=== PATIENT | female | born 1985 | race Two or more races ===

== ENCOUNTER 2018-11-10 11:15 | Emergency (ER) | payer OTHER ==
[2018-11-10 11:24] VITALS: RESP 18; TEMP 97.8
--- NOTE | 2018-11-10 12:10 | XR ---
EXAMINATION TYPE: XR chest 2V DATE OF EXAM: 11/10/2018 COMPARISON: None HISTORY: 33-year-old female palpitations, dysrhythmia TECHNIQUE: PA and lateral views FINDINGS: Heart normal size. Aorta and pulmonary vascularity within normal limits. Some strandy atelectasis of the right base. Mild peribronchial cuffing is noted. No consolidation or pleural effusion. IMPRESSION: Mild peribronchial cuffing may reflect bronchitis or asthma.
[2018-11-10 12:19] LABS: Basophils % (A) 0 %; Eosinophils # (A) 0.2 k/uL (0-0.7); Eosinophils % (A) 2 %; HCT 42.5 % (34.0-46.0); HGB 14.2 gm/dL (11.4-16.0); Lymphocytes # (A) 1.9 k/uL (1.0-4.8); Lymphocytes % (A) 23 %; MCH 28.8 pg (25.0-35.0); MCHC 33.4 g/dL (31.0-37.0); MCV 86.1 fL (80.0-100.0); Mean Platelet Volume 7.8; Monocytes # (A) 0.4 k/uL (0-1.0); Monocytes % (A) 4 %; Neutrophils # (A) 5.7 k/uL (1.3-7.7); Neutrophils % (A) 68 %; Platelet Count 253 k/uL (150-450); RBC 4.94 m/uL (3.80-5.40); RDW 12.6 % (11.5-15.5); WBC 8.3 k/uL (3.8-10.6)
[2018-11-10 12:28] LABS: ALT 30 U/L (9-52); AST 26 U/L (14-36); Albumin 4.5 g/dL (3.5-5.0); Alkaline Phosphatase 64 U/L (38-126); Anion Gap 10 mmol/L; Blood Urea Nitrogen 13 mg/dL (7-17); Calcium 9.9 mg/dL (8.4-10.2); Carbon Dioxide 23 mmol/L (22-30); Chloride 108 mmol/L (98-107); Glucose 80 mg/dL (74-99); Magnesium 2.1 mg/dL (1.6-2.3); Sodium 141 mmol/L (137-145); Total Bilirubin 0.8 mg/dL (0.2-1.3); Total Protein 7.7 g/dL (6.3-8.2)
[2018-11-10 12:29] LABS: INR 0.9 (<1.2); Partial Thromboplastin Time 27.6 sec (22.0-30.0); Prothrombin Time 10.2 sec (9.0-12.0)
[2018-11-10 12:40] LABS: Creatine Kinase 55 U/L (30-135)
[2018-11-10 12:53] LABS: Creatine Kinase MB <0.2 ng/mL (0.0-2.4); Troponin I <0.012 ng/mL (0.000-0.034)
--- NOTE | 2018-11-10 13:30 | ED ---
Arrhythmia/Palpitations HPI - General Chief Complaint: Arrhythmia/Palpitations Stated Complaint: palpatations x 3 weeks Time Seen by Provider: 11/10/18 11:26 Source: patient Mode of arrival: ambulatory Limitations: no limitations - History of Present Illness Initial Comments: 33-year-old female patient presents to the emergency department today with complaints of palpitations. Patient states that for the last 3 weeks she has been having episodes were she feels that her heart is skipping beats. Patient states that today she felt like she had a long episode of the palpitations, states it made her feel dizzy and like she was going to pass out. Patient states that she was seen and evaluated for this at [facility] a couple of weeks ago and was diagnosed as having occasional PVCs. Patient does have an appointment on the have a Holter monitor placed and then subsequently following with the streetcar dispatcher. Patient states that she did feel like she could wait that long so she presented here for further evaluation. She states with the episode she did become nauseated and did have some mild dizziness. She denies any fevers or chills with this. Denies any chest pain or shortness of breath. Denies any use of caffeine or other stimulant medications. Patient denies any recent rash, abdominal pain, vomiting, diarrhea , constipation, back pain, numbness, tingling, hematuria, dysuria, urinary urgency, urinary frequency, headache, visual changes, or any other complaints. - Related Data Allergies Allergy/AdvReac Type Severity Reaction Status Date / Time cefaclor [From [facility]] Allergy Rash/Hives Verified 11/10/18 11:24 Penicillins Allergy Rash/Hives Verified 11/10/18 11:24 Review of Systems ROS Statement: Those systems with pertinent positive or pertinent negative responses have been documented in the HPI. ROS Other: All systems not noted in ROS Statement are negative. Past Medical History Additional Past Medical History / Comment(s): Palpitations History of Any Multi-Drug Resistant Organisms: None Reported Past Surgical History: Appendectomy, Cholecystectomy, Tonsillectomy Past Psychological History: Anxiety Smoking Status: Current every day smoker Past Alcohol Use History: None Reported General Exam Limitations: no limitations General appearance: alert, in no apparent distress, other (This is a well- developed, well-nourished adult female patient in no acute distress. Vital signs upon temperature 97.8F, pulse 78, respirations 18, blood pressure 124/82 , pulse ox 100% on room air.) Eye exam: Present: normal appearance, PERRL, EOMI. Absent: scleral icterus, conjunctival injection, periorbital swelling ENT exam: Present: normal exam, normal oropharynx, mucous membranes moist Respiratory exam: Present: normal lung sounds bilaterally. Absent: respiratory distress, wheezes, rales, rhonchi, stridor Cardiovascular Exam: Present: regular rate, normal rhythm, normal heart sounds. Absent: systolic murmur, diastolic murmur, rubs, gallop, clicks GI/Abdominal exam: Present: soft, normal bowel sounds. Absent: distended, tenderness, guarding, rebound, rigid Neurological exam: Present: alert, oriented X3, CN II-XII intact Psychiatric exam: Present: normal affect, normal mood Skin exam: Present: warm, dry, intact, normal color. Absent: rash Course Vital Signs 11/10/18 11/10/18 11:21 13:45 Temperature 97.8 F Pulse Rate 78 68 Respiratory 18 18 Rate Blood Pressure 124/82 111/82 O2 Sat by Pulse 100 98 Oximetry EKG Findings - EKG Comments: EKG Findings:: EKG obtained at 1148 shows normal sinus rhythm with a ventricular rate of 71, CT interval 1:30, QRS duration 78, QT 378, QTC 410. No evidence of ST elevation or depression. No ectopy. No evidence of PVCs. Medical Decision Making - Medical Decision Making 33-year-old female patient presented to the emergency department today for evaluation of palpitations. Physical examination is relatively unremarkable. Heart sounds were normal and regular. EKG showed normal sinus rhythm. Patient did have evidence of occasional PVCs on the senior cost analyst, no runs were identified. Labs reviewed and are unremarkable. Electric like all within normal range. Troponin negative. Thyroid within normal limits. Did discuss findings and results with the patient. She does have an appointment for Holter monitor placement on the , she is urged to keep this appointment. She is instructed to follow-up with her primary care physician and the streetcar dispatcher for recheck as soon as possible. Return parameters were discussed in detail. She verbalizes understanding and agrees with this plan - Lab Data Result diagrams: 11/10/18 11:49 11/10/18 11:49 Lab Results 11/10/18 11/10/18 11/10/18 Range/Units 11:49 11:49 11:49 WBC 8.3 (3.8-10.6) k/uL RBC 4.94 (3.80-5.40) m/uL Hgb 14.2 (11.4-16.0) gm/dL Hct 42.5 (34.0-46.0) % MCV 86.1 (80.0-100.0) fL MCH 28.8 (25.0-35.0) pg MCHC 33.4 (31.0-37.0) g/dL RDW 12.6 (11.5-15.5) % Plt Count 253 (150-450) k/uL Neutrophils % 68 % Lymphocytes % 23 % Monocytes % 4 % Eosinophils % 2 % Basophils % 0 % Neutrophils # 5.7 (1.3-7.7) k/uL Lymphocytes # 1.9 (1.0-4.8) k/uL Monocytes # 0.4 (0-1.0) k/uL Eosinophils # 0.2 (0-0.7) k/uL Basophils # 0.0 (0-0.2) k/uL PT (9.0-12.0) sec INR (<1.2) APTT (22.0-30.0) sec Sodium 141 (137-145) mmol/L Potassium 4.0 (3.5-5.1) mmol/L Chloride 108 H (98-107) mmol/L Carbon Dioxide 23 (22-30) mmol/L Anion Gap 10 mmol/L BUN 13 (7-17) mg/dL Creatinine 0.61 (0.52-1.04) mg/dL Est GFR (CKD-EPI)AfAm >90 (>60 ml/min/1.73 sqM) Est GFR (CKD-EPI)NonAf >90 (>60 ml/min/1.73 sqM) Glucose 80 (74-99) mg/dL Calcium 9.9 (8.4-10.2) mg/dL Magnesium 2.1 (1.6-2.3) mg/dL Total Bilirubin 0.8 (0.2-1.3) mg/dL AST 26 (14-36) U/L ALT 30 (9-52) U/L Alkaline Phosphatase 64 (38-126) U/L Total Creatine Kinase 55 (30-135) U/L CK-MB (CK-2) <0.2 (0.0-2.4) ng/mL CK-MB (CK-2) Rel Index Troponin I <0.012 (0.000-0.034) ng/mL Total Protein 7.7 (6.3-8.2) g/dL Albumin 4.5 (3.5-5.0) g/dL TSH 0.920 (0.465-4.680) mIU/L 11/10/18 Range/Units 11:49 WBC (3.8-10.6) k/uL RBC (3.80-5.40) m/uL Hgb (11.4-16.0) gm/dL Hct (34.0-46.0) % MCV (80.0-100.0) fL MCH (25.0-35.0) pg MCHC (31.0-37.0) g/dL RDW (11.5-15.5) % Plt Count (150-450) k/uL Neutrophils % % Lymphocytes % % Monocytes % % Eosinophils % % Basophils % % Neutrophils # (1.3-7.7) k/uL Lymphocytes # (1.0-4.8) k/uL Monocytes # (0-1.0) k/uL Eosinophils # (0-0.7) k/uL Basophils # (0-0.2) k/uL PT 10.2 (9.0-12.0) sec INR 0.9 (<1.2) APTT 27.6 (22.0-30.0) sec Sodium (137-145) mmol/L Potassium (3.5-5.1) mmol/L Chloride (98-107) mmol/L Carbon Dioxide (22-30) mmol/L Anion Gap mmol/L BUN (7-17) mg/dL Creatinine (0.52-1.04) mg/dL Est GFR (CKD-EPI)AfAm (>60 ml/min/1.73 sqM) Est GFR (CKD-EPI)NonAf (>60 ml/min/1.73 sqM) Glucose (74-99) mg/dL Calcium (8.4-10.2) mg/dL Magnesium (1.6-2.3) mg/dL Total Bilirubin (0.2-1.3) mg/dL AST (14-36) U/L ALT (9-52) U/L Alkaline Phosphatase (38-126) U/L Total Creatine Kinase (30-135) U/L CK-MB (CK-2) (0.0-2.4) ng/mL CK-MB (CK-2) Rel Index Troponin I (0.000-0.034) ng/mL Total Protein (6.3-8.2) g/dL Albumin (3.5-5.0) g/dL TSH (0.465-4.680) mIU/L - Radiology Data Radiology results: report reviewed, image reviewed Two-view x-ray of the chest is obtained. Report was reviewed in its entirety. Heart is normal size. Aorta and pulmonary vascularity within normal size. Some strandy atelectasis of the right base. Mild parent bronchial cuffing is noted. No consolidation or pleural effusion. Impression by Dr. Griffin shows mild peribronchial cuffing may reflect bronchitis or asthma. Disposition Clinical Impression: Palpitations Disposition: HOME SELF-CARE Condition: Good Instructions: Heart Palpitations (ED) Additional Instructions: Follow up with cardiology as you have planned. Have holter monitor placed on the as you have planned. Return immediately for any new, worsening, or concerning symptoms. Is patient prescribed a controlled substance at d/c from ED?: No Referrals: Zane Cardozo MD [Primary Care Provider] - 1-2 days Time of Disposition: 13:30
[2018-11-10 13:46] VITALS: BP 111/82; PULSE 68
== END 2018-11-10 13:44 | disposition home or self-care (01) ==
LOC: EC 11:15
DX: R00.2 Palpitations (principal); J98.09 Other diseases of bronchus, not elsewhere classified; R11.0 Nausea; R42 Dizziness and giddiness; F17.200 Nicotine dependence, unspecified, uncomplicated; Z88.0 Allergy status to penicillin; Z88.1 Allergy status to other antibiotic agents
CPT/HCPCS: 36415; 71046; 80053; 82550; 82553; 83735; 84443; 84484; 85025; 85610; 85730; 93005; 99285

== ENCOUNTER 2023-01-29 18:16 | Emergency (ER) | payer BC ==
[2023-01-29 18:34] VITALS: TEMP 98.1
[2023-01-29 18:53] VITALS: RESP 16
[2023-01-29] MEDS ORDERED: PANTOPRAZOLE 40 MG/10 ML VIAL IVP STA (19:06)
[2023-01-29] MEDS ORDERED: SODIUM CHLORIDE 0.9% 1,000 ML IV STA (19:06)
--- NOTE | 2023-01-29 19:24 | ED ---
General Adult HPI - General Chief complaint: Abdominal Pain Stated complaint: Abd & Chest Pain Time Seen by Provider: 01/29/23 18:40 Source: patient, RN notes reviewed Mode of arrival: ambulatory Limitations: no limitations - History of Present Illness Initial comments: Patient is a 37-year-old female presenting to the emergency room with complaints of abdominal pain and intermittent nausea. She reports that abdominal pain is upper with burning-like sensation in the esophageal region at times. She reports that the symptoms have been ongoing for approximately a month and a half began shortly after having influenza. She has seen her primary care provider regarding the symptoms and had her omeprazole 20 mg [id number] dosing inc reased to twice a day from once a day. She was also placed on Bentyl 3 times a day. She reports that these medications have not made any significant changes to her symptoms. She was referred to a GI provider but unfortunately has not been able to schedule an appointment with them. She is also having chest pain with her symptoms and was evaluated by cardiology and cleared from a cardiac standpoint at [facility]. She reports no changes in her cardiovascular symptoms since evaluation. She reports decrease in appetite with decreased intake with her symptoms. She reports decreased amount of bowel movements over the last several days and notes that her last bowel movement was diarrhea earlier today. She denies any blood or mucus in her diarrhea. She reports feeling nauseated but no recent emesis. She states that her last episode of vomiting was approximately 2 weeks ago. She reports some occasional facial flushing but denies any known fevers or chills. She denies any typical chest pain, shortness of breath, headache or dizziness. She has a past medical history significant for palpitations and gastritis. - Related Data Home Medications Medication Instructions Recorded Confirmed ALPRAZolam [Xanax] 0.25 mg PO BID PRN 01/29/23 01/29/23 Dicyclomine HCl 20 mg PO TID 01/29/23 01/29/23 Omeprazole Magnesium [PriLOSEC OTC] 20 mg PO BID 01/29/23 01/29/23 Previous Rx's Medication Instructions Recorded Famotidine [Pepcid] 40 mg PO HS 30 Days #30 tablet 01/29/23 Ondansetron Odt [Zofran Odt] 4 mg PO Q8HR PRN 7 Days #21 tab 01/29/23 Pantoprazole [Protonix] 40 mg PO DAILY 30 Days #30 tab 01/29/23 Allergies Allergy/AdvReac Type Severity Reaction Status Date / Time cefaclor [From [facility]] Allergy Rash/Hives Verified 01/29/23 20:46 Penicillins Allergy Rash/Hives Verified 01/29/23 20:46 Review of Systems ROS Statement: Those systems with pertinent positive or pertinent negative responses have been documented in the HPI. ROS Other: All systems not noted in ROS Statement are negative. Past Medical History Additional Past Medical History / Comment(s): Palpitations, gastritis History of Any Multi-Drug Resistant Organisms: None Reported Past Surgical History: Appendectomy, Cholecystectomy, Tonsillectomy Past Psychological History: Anxiety Smoking Status: Current every day smoker Past Alcohol Use History: None Reported Past Drug Use History: None Reported General Exam - General Exam Comments Initial Comments: GENERAL: No acute distress, well developed, well nourished. HEENT: Normocephalic, atraumatic. Pupils equal, round, reactive to light. Moist mucous membranes. LUNGS: No respiratory distress. Clear to auscultation, no adventitious sounds, no use of accessory muscles. HEART: Regular rate and rhythm without murmur, rub, or gallop. ABDOMEN: Normal bowel sounds. Soft, non-tender, non-distended. BACK: Normal inspection. EXTREMITIES: No edema. No tenderness. Moves all extremities. NEUROLOGIC: Alert & oriented x 3. CN II-XII grossly intact. PSYCHIATRIC: Normal affect and behavior. DERMATOLOGIC: Skin intact, without rashes or lesions noted. Limitations: no limitations Course Vital Signs 01/29/23 01/29/23 01/29/23 18:28 18:52 21:11 Temperature 98.1 F 98.1 F Pulse Rate 85 74 84 Respiratory 18 16 Rate Blood Pressure 147/102 130/100 127/81 O2 Sat by Pulse 100 99 Oximetry 01/29/23 23:18 Temperature Pulse Rate 82 Respiratory 16 Rate Blood Pressure 128/84 O2 Sat by Pulse 99 Oximetry Medical Decision Making - Medical Decision Making Was pt. sent in by a medical professional or institution (, PA, ELECTROCARDIOGRAPH TECHNICIAN, urgent care, hospital, or halfway...) When possible be specific @ -No Did you speak to anyone other than the patient for history (EMS, parent, family, police, friend...)? What history was obtained from this source @ -Spouse Did you review nursing and triage notes (agree or disagree)? Why? @ -I reviewed and agree with nursing and triage notes Were old charts reviewed (outside hosp., previous admission, EMS record, old EKG, old radiological studies, urgent care reports/EKG's, halfway records)? Report findings @ -No old charts were reviewed Differential Diagnosis (chest pain, altered mental status, abdominal pain women, abdominal pain men, vaginal bleeding, weakness, fever, dyspnea, syncope, headache, dizziness, GI bleed, back pain, seizure, CVA, palpatations, mental health, musculoskeletal)? @ -Differential Abdominal Pain Women: Appendicitis, Cholecystitis, diverticulosis, ischemic bowel, pancreatitis, hepatitis, UTI, gastroenteritis, AAA, incarcerated hernia, bowel obstruction, constipation, inflammatory bowel, hepatitis, peptic ulcer disease, splenic infarction, perforated viscus, vulvitis, ovarian torsion, PID, kidney stone, placenta abruption, this is not meant to be an all-inclusive list EKG interpreted by me (3pts min.). @ -None done X-rays interpreted by me (1pt min.). @ -None done CT interpreted by me (1pt min.). @ -Computed tomography scan abdomen and pelvis with contrast: No obstruction, free fluid or air in abdomen. No acute intra-abdominal process. Nonobstructing left renal calculi. U/S interpreted by me (1pt. min.). @ -None done What testing was considered but not performed or refused? (CT, X-rays, U/S, labs)? Why? @ -None What meds were considered but not given or refused? Why? @ -None Did you discuss the management of the patient with other professionals (professionals i.e. , PA, ELECTROCARDIOGRAPH TECHNICIAN, lab, RT, psych nurse, psychotherapist social worker, human resources receptionist, teacher, community cultural development officer, correctional casework specialist)? Give summary @ -No Was smoking cessation discussed for >3mins.? @ -No Was critical care preformed (if so, how long)? @ -No Were there social determinants of health that impacted care today? How? (Homelessness, low income, unemployed, alcoholism, drug addiction, briggs sportation, low edu. Level, literacy, decrease access to med. care, senior living, rehab)? @ -No Was there de-escalation of care discussed even if they declined (Discuss DNR or withdrawal of care, Hospice)? DNR status @ -No What co-morbidities impacted this encounter? (DM, HTN, Smoking, COPD, CAD, Cancer, CVA, ARF, Chemo, Hep., AIDS, mental health diagnosis, sleep apnea, morbid obesity)? @ -None Was patient admitted / discharged? Hospital course, mention meds given and route, prescriptions, significant lab abnormalities, going to OR and other pertinent info. @ -37-year-old female presenting to the emergency room with complaints of abdominal pain and intermittent nausea. Symptoms ongoing for some time. Patient recently had PPI adjusted by primary care provider without any relief in symptoms. Referred to GI for EGD has not seen GI at. Will obtain CBC, CMP, amylase, lipase and send out for H. pylori breath test study in the setting of symptoms ongoing for some time without improvement. Will give IV Protonix and IV fluids and monitor response. Continued nausea without vomiting and abdominal pain intermittently despite medications will give Zofran IV and obtain computed tomography scan of the abdomen. CBC without abnormalities CMP demonstrates slightly elevated liver enzymes AST 38, ALP 51, normal bilirubin, normal alkaline phosphatase, normal amylase, normal lipase. Nausea improved with Zofran. Abdominal pain intermittently but stable. Computed tomography scan negative for acute intra-abdominal. No indication for further diagnostic imaging or laboratory studies. Findings discussed at length with patient and spouse. Advised will change PPI to Protonix orally once a day in the morning H2 histamine of Pepcid 40 mg at bedtime and Zofran for nausea as needed advised continued follow-up with primary care provider and GI as referred. Questions and concerns answered. Return parameters to the emergency room discussed. Will discharge home in stable condition on Protonix, Pepcid and Zofran to utilize for GERD and abdominal pain advising follow up with GI and primary care provider. Undiagnosed new problem with uncertain prognosis? @ -No Drug Therapy requiring intensive monitoring for toxicity (Heparin, Nitro, Insulin, Cardizem)? @ -No Were any procedures done? @ -No Diagnosis/symptom? @ -GERD Acute, or Chronic, or Acute on Chronic? @ -Acute on chronic Uncomplicated (without systemic symptoms) or Complicated (systemic symptoms)? @ -Uncomplicated Side effects of treatment? @ -No Exacerbation, Progression, or Severe Exacerbation? @ -No Poses a threat to life or bodily function? How? (Chest pain, [place], [place], pneumonia, PE, COPD, DKA, ARF, appy, cholecystitis, CVA, Diverticulitis, Homicidal, Suicidal, threat to staff... and all critical care pts) @ -No Diagnosis/symptom? @ -Abdominal pain Acute, or Chronic, or Acute on Chronic? @ -Acute Uncomplicated (without systemic symptoms) or Complicated (systemic symptoms)? @ -Uncomplicated Side effects of treatment? @ -none Exacerbation, Progression, or Severe Exacerbation] @ -no Poses a threat to life or bodily function? @ -no Case discussed with Dr. Lu - Lab Data Result diagrams: 01/29/23 19:10 01/29/23 19:10 Lab Results 01/29/23 01/29/23 01/29/23 Range/Units 19:10 19:10 23:00 WBC 7.4 (3.8-10.6) k/uL RBC 4.91 (3.80-5.40) m/uL Hgb 14.7 (11.4-16.0) gm/dL Hct 42.2 (34.0-46.0) % MCV 86.0 (80.0-100.0) fL MCH 29.9 (25.0-35.0) pg MCHC 34.7 (31.0-37.0) g/dL RDW 12.3 (11.5-15.5) % Plt Count 283 (150-450) k/uL MPV 9.2 Neutrophils % 61 % Lymphocytes % 28 % Monocytes % 6 % Eosinophils % 4 % Basophils % 1 % Neutrophils # 4.5 (1.3-7.7) k/uL Lymphocytes # 2.1 (1.0-4.8) k/uL Monocytes # 0.4 (0-1.0) k/uL Eosinophils # 0.3 (0-0.7) k/uL Basophils # 0.1 (0-0.2) k/uL Sodium 140 (137-145) mmol/L Potassium 4.2 (3.5-5.1) mmol/L Chloride 105 (98-107) mmol/L Carbon Dioxide 24 (22-30) mmol/L Anion Gap 11 mmol/L BUN 7 (7-17) mg/dL Creatinine 0.50 L (0.52-1.04) mg/dL Est GFR (CKD-EPI)AfAm >90 (>60 ml/min/1.73 sqM) Est GFR (CKD-EPI)NonAf >90 (>60 ml/min/1.73 sqM) Glucose 83 (74-99) mg/dL Calcium 9.9 (8.4-10.2) mg/dL Total Bilirubin 0.7 (0.2-1.3) mg/dL AST 38 H (14-36) U/L ALT 51 H (4-34) U/L Alkaline Phosphatase 74 (38-126) U/L Total Protein 7.9 (6.3-8.2) g/dL Albumin 4.8 (3.5-5.0) g/dL Amylase 43 (30-110) U/L Lipase 70 (23-300) U/L Urea Breath Test 0 Min Negative (Negative) - Radiology Data Radiology results: report reviewed, image reviewed Disposition Clinical Impression: GERD (gastroesophageal reflux disease), Abdominal pain Disposition: HOME SELF-CARE Condition: Stable Instructions (If sedation given, give patient instructions): GERD (Gastroesophageal Reflux Disease) (ED), Abdominal Pain (ED) Additional Instructions: stop your omeprazole 20 mg and began Protonix 40 mg once a day in the morning along with Pepcid 40 mg once a day at bedtime. Utilize Zofran as needed for nausea. May continue Bentyl as needed for abdominal cramping. Please follow-up with your primary care provider and shuttler if established.Please return to the Emergency Department if symptoms worsen or any other concerns. Prescriptions: Famotidine [Pepcid] 40 mg PO HS 30 Days #30 tablet Pantoprazole [Protonix] 40 mg PO DAILY 30 Days #30 tab Ondansetron Odt [Zofran Odt] 4 mg PO Q8HR PRN 7 Days #21 tab PRN Reason: Nausea Is patient prescribed a controlled substance at d/c from ED?: No Referrals: Zane Cardozo MD [Primary Care Provider] - 1-2 days Time of Disposition: 23:07
[2023-01-29 20:16] LABS: Potassium 4.2 mmol/L (3.5-5.1)
[2023-01-29 20:17] LABS: ALT 51 U/L (4-34); AST 38 U/L (14-36); African American GFR (CKD) >90 (>60 ml/min/1.73 sqM); Albumin 4.8 g/dL (3.5-5.0); Alkaline Phosphatase 74 U/L (38-126); Amylase 43 U/L (30-110); Anion Gap 11 mmol/L; Blood Urea Nitrogen 7 mg/dL (7-17); Calcium 9.9 mg/dL (8.4-10.2); Carbon Dioxide 24 mmol/L (22-30); Chloride 105 mmol/L (98-107); Glucose 83 mg/dL (74-99); Lipase 70 U/L (23-300); Non-African American GFR(CKD) >90 (>60 ml/min/1.73 sqM); Sodium 140 mmol/L (137-145); Total Bilirubin 0.7 mg/dL (0.2-1.3); Total Protein 7.9 g/dL (6.3-8.2)
[2023-01-29 20:25] LABS: Basophils # (A) 0.1 k/uL (0-0.2); Basophils % (A) 1 %; Eosinophils # (A) 0.3 k/uL (0-0.7); Eosinophils % (A) 4 %; HCT 42.2 % (34.0-46.0); HGB 14.7 gm/dL (11.4-16.0); Lymphocytes # (A) 2.1 k/uL (1.0-4.8); Lymphocytes % (A) 28 %; MCH 29.9 pg (25.0-35.0); MCHC 34.7 g/dL (31.0-37.0); Mean Platelet Volume 9.2; Monocytes # (A) 0.4 k/uL (0-1.0); Monocytes % (A) 6 %; Neutrophils # (A) 4.5 k/uL (1.3-7.7); Neutrophils % (A) 61 %; Platelet Count 283 k/uL (150-450); RBC 4.91 m/uL (3.80-5.40); RDW 12.3 % (11.5-15.5); WBC 7.4 k/uL (3.8-10.6)
[2023-01-29] MEDS ORDERED: ONDANSETRON 4 MG/2 ML VIAL IVP STA (20:48)
--- NOTE | 2023-01-29 22:31 | CT ---
EXAMINATION TYPE: CT abdomen pelvis w con CT DLP: 1055 mGycm, Automated exposure control for dose reduction was used. DATE OF EXAM: 01/29/2023 9:31 PM COMPARISON: Chest x-ray 01/29/2023 CLINICAL INDICATION:Female, 37 years old with history of abdominal pain; epigasric pain TECHNIQUE: Axial CT of the abdomen and pelvis. Sagittal and coronal reformats were created on a [employer] workstation. Contrast used:100 mL of Isovue 300 with IV Contrast, Oral contrast used: without Oral Contrast FINDINGS: LOWER CHEST: Unremarkable ABDOMEN LIVER: Diffusely hypoattenuating parenchyma. GALLBLADDER AND BILE DUCTS: The gallbladder is surgically absent. PANCREAS: Unremarkable. SPLEEN: Unremarkable. ADRENAL GLANDS: Unremarkable. KIDNEYS AND URETERS: Punctate nonobstructing left lower pole renal calculus. No hydronephrosis. PELVIS BLADDER: Unremarkable REPRODUCTIVE: Intrauterine device seen within the endometrium. ABDOMEN & PELVIS STOMACH AND BOWEL: Stomach and duodenum are unremarkable. Scattered diverticula are noted throughout the colon. No evidence of bowel obstruction. Appendix is surgically absent. PERITONEUM: No evidence of pneumoperitoneum or free fluid. VASCULATURE: Unremarkable MUSCULOSKELETAL: No acute osseous abnormalities LYMPH NODES: No gross evidence for lymphadenopathy. SOFT TISSUE/ABDOMINAL WALL: Unremarkable IMPRESSION: 1. No acute intra-abdominal or intrapelvic abnormality. 2. Hepatic steatosis. 3. Nonobstructing left lower pole renal calculus.
[2023-01-29 23:20] VITALS: BP 128/84; PULSE 82
== END 2023-01-29 23:20 | disposition home or self-care (01) ==
LOC: EC 18:16
DX: R10.10 Upper abdominal pain, unspecified (principal); K21.9 Gastro-esophageal reflux disease without esophagitis; F41.9 Anxiety disorder, unspecified; F17.200 Nicotine dependence, unspecified, uncomplicated; Z79.899 Other long term (current) drug therapy; Z88.0 Allergy status to penicillin; Z88.1 Allergy status to other antibiotic agents
CPT/HCPCS: 36415; 80053; 83013; 82150; 83690; 85025; 74177; 99284; 96374; 96375; 96361; J2405; C9113; Q9967; 93005